=== PATIENT | female | born 1960 | race Caucasian/White ===

== ENCOUNTER 2016-10-30 11:26 | Emergency (ER) | payer OTHER ==
[~2016-10-30] VITALS: Ht 154.9 cm; Wt 59.5 kg
[2016-10-30 11:29] VITALS: BP 145/76
--- NOTE | 2016-10-30 12:43 | NUR ---
PT AMB TO BED7
--- NOTE | 2016-10-30 13:02 | NUR ---
Patient being evaluated by DR GUY at bedside.
[2016-10-30] MEDS ORDERED: ONDANSETRON 4 MG ODT PO ONE (13:15)
--- NOTE | 2016-10-30 13:25 | NUR ---
PT TAKEN TO XRAY VIA W/C, ACCOMPANIED BY RAD TECT.
--- NOTE | 2016-10-30 13:30 | NUR ---
PT BACK FROM X RAY
[2016-10-30 14:18] VITALS: BP 145/76
--- NOTE | 2016-10-30 14:18 | NUR ---
Patient discharged with v/s stable. Written and verbal after care instructions given and explained. Patient alert, oriented and verbalized understanding of instructions. Ambulatory with steady gait. All questions addressed prior to discharge. ID band removed. Patient advised to follow up with PMD. Rx of ZOFRAN & LOMOTIL given. Patient educated on indication of medication including possible reaction and side effects. Opportunity to ask questions provided and answered.
== END 2016-10-30 14:18 | disposition home or self-care (01) ==
LOC: MED 11:26
DX: K52.9 Noninfective gastroenteritis and colitis, unspecified (principal); E11.9 Type 2 diabetes mellitus without complications; I10 Essential (primary) hypertension
CPT/HCPCS: 74000; 81002; 81025; 82948; 99283; S0119

== ENCOUNTER 2023-09-20 08:26 | Emergency (ER) | payer OTHER ==
[~2023-09-20] VITALS: Ht 157.5 cm; Wt 58.1 kg
[2023-09-20 08:30] VITALS: BP 155/76; PULSE 67; RESP 16; TEMP 98.4; O2SAT 99
[2023-09-20 09:01] LABS: BASOPHILS % (AUTO) 0.6 % (0.0-2.0); EOSINOPHILS # (AUTO) 0.4 K/uL (0-0.4); EOSINOPHILS % (AUTO) 6.2 % (0.0-4.0); HEMOGLOBIN 13.9 g/dL (12.0-16.0); LYMPHOCYTES # (AUTO) 1.9 K/uL (2.5-16.5); LYMPHOCYTES % (AUTO) 30.2 % (20.5-51.1); MEAN CORPUSCULAR HEMOGLOBIN 28 pg (27-31); MEAN CORPUSCULAR HGB CONC 33 g/dL (33-37); MEAN CORPUSCULAR VOLUME 84.4 fL (80-94); MONOCYTES # (AUTO) 0.4 K/uL (0.8-1.0); MONOCYTES % (AUTO) 5.9 % (1.7-9.3); NEUTROPHILS # (AUTO) 3.7 K/uL (1.8-7.7); NEUTROPHILS % (AUTO) 57.1 % (42.2-75.2); PLATELET COUNT (AUTO) 360 K/uL (140-450); RED BLOOD CELL COUNT(AUTO) 4.97 MIL/uL (4.20-5.40); RED CELL DISTRIBUTION WIDTH 13.2 % (11.6-13.7); WHITE BLOOD COUNT (AUTO) 6.4 K/uL (4.8-10.8)
[2023-09-20 09:38] LABS: CALCIUM 9.7 mg/dL (8.5-10.1); CARBON DIOXIDE 29.9 mmol/L (21-32); CREATININE 1.1 mg/dL (0.6-1.3)
[2023-09-20 10:11] LABS: INR 0.94 (0.8-1.2); PARTIAL THROMBOPLASTIN TIME 22.5 secs (22-35.6); PROTHROMBIN TIME 9.9 secs (10.8-13.4)
[2023-09-20 10:12] LABS: POTASSIUM 2.9 mmol/L (3.5-5.1)
[2023-09-20] MEDS: POTASSIUM CHLORIDE 10 MEQ TABER PO ONE (10:25)
[2023-09-20] MEDS: MAG SULF 2000 MG/WATER PREMIX 50 ML IV ONE (10:28)
[2023-09-20] MEDS ORDERED: POTA10TA70 PO (14:02)
[2023-09-20 14:26] VITALS: BP 120/74; PULSE 86; RESP 16; TEMP 98.1; O2SAT 99
== END 2023-09-20 14:26 | disposition home or self-care (01) ==
LOC: MED 08:26
DX: E87.6 Hypokalemia (principal); R55 Syncope and collapse; E11.9 Type 2 diabetes mellitus without complications; E78.5 Hyperlipidemia, unspecified; I10 Essential (primary) hypertension; Z90.49 Acquired absence of other specified parts of digestive tract; Z79.899 Other long term (current) drug therapy; Z48.00 Encounter for change or removal of nonsurgical wound dressing
CPT/HCPCS: 36415; 71045; 71275; 80048; 82948; 83880; 84484; 85025; 85379; 85610; 85730; 93005; 96365; 96366; 99285; J3475; Q0092; Q9967